=== PATIENT | female | born 1970 | race Caucasian/White ===

== ENCOUNTER 2022-04-25 09:48 | Outpatient (CLI) | payer OTHER, SELFPAY ==
--- NOTE | ~2022-04-25 | MR_ITS ---
EXAMINATION: MR cervical spine wo con DATE: 04/25/2022 10:23 INDICATION: Neck pain and decreased sensation at the bilateral hands . TECHNIQUE: Magnetic resonance imaging (MRI) of the cervical spine was performed without intravenous c ontrast. Sequences included sagittal T2-weighted FSE, sagittal T2-weighted FS FSE, sagittal T1-weight ed FSE, axial MERGE and axial T2-weighted FSE. COMPARISON: None FINDINGS: 1-2 mm anterolisthesis T2 and T3. Straightening of the normal cervical lordosis which could be positi onal or due to muscle spasm. Vertebral body heights are normal. Bone marrow signal intensity is nor mal. Mild disc height loss at C4-C5 and C5-C6 and minimally at C6-C7 with annular fissures at each le spencer. Cord signal intensity is normal. Soft tissues are unremarkable. The following disc levels are sp ecifically discussed: C2-C3: The disc does not extend beyond the endplate margin. There is no uncovertebral joint osteoarth ritis. There is altered left and moderate right facet joint osteoarthritis. There is no neural forami nal stenosis. There is no central canal stenosis. C3-C4: The disc does not extend beyond the endplate margin. There is mild left uncovertebral joint os teoarthritis. There is severe bilateral facet joint osteoarthritis. There is mild left neural foramin al stenosis. There is no central canal stenosis. C4-C5: Disc is bulging with annular fissure, eccentric to the left where it flattens the left ventral surface of the cord. There is moderate bilateral uncovertebral joint osteoarthritis. There is modera te bilateral facet joint osteoarthritis. There is mild right neural foraminal stenosis. There is mild central canal stenosis. C5-C6: Disc is bulging with annular fissure, eccentric to the left where it flattens the left ventral surface of the cord. There is moderate left and severe right uncovertebral joint osteoarthritis. The re is mild bilateral facet joint osteoarthritis. There is mild right neural foraminal stenosis. There is mild central canal stenosis. C6-C7: Fissure with small central disc extrusion with disc material extending up to 5 mm caudal to the level of the superior endplate of C7. There is mild left and moderate right uncovertebral joint osteoarthr itis. There is mild bilateral facet joint osteoarthritis. There is mild right neural foraminal stenos is. There is mild central canal stenosis. C7-T1: The disc does not extend beyond the endplate margin. There is no uncovertebral joint osteoarth ritis. There is mild right and moderate left facet joint osteoarthritis. There is minimal bilateral n eural foraminal stenosis. There is no central canal stenosis. IMPRESSION: 1. Mild to moderate cervical spondylosis. Reviewed, dictated and finalized at location A.
== END 2022-04-25 09:49 | disposition home or self-care (01) ==
LOC: ANHIMG 09:53
PROVIDERS: PCP Family Medicine; Visit Provider Family Medicine
DX: M47.892 Other spondylosis, cervical region (principal)
CPT/HCPCS: 72141